=== PATIENT | female | born 1965 | race Caucasian/White ===

== ENCOUNTER 2019-05-28 11:24 | Emergency (ER) | payer SELFPAY ==
--- NOTE | 2019-05-28 12:06 | Emergency Department Record ---
History of Present Illness - General Chief Complaint: Rapid heartbeat Stated Complaint: Rapid Heart Rate Time Seen by Provider: 05/28/19 11:38 Source: Patient Mode of Arrival: Ambulatory Limitations: No limitations - History of Present Illness Initial Comments: The patient is here due to a rapid heart beat for 2-3 hours this morning. The patient has been having the issues off and on for months and today it seemed to last longer than normal. She denies any CP, SOB, JEREMY, LUCAS or sweating with it and denies any new medicines. The patient has seen a Desk Maker for this in the past in [place]. Complaint: Rapid heart beat Onset/Timin -: Hour(s) - Related Data Home Medications Medication Instructions Recorded Confirmed Last Taken Aspirin Chewable 81 mg PO DAILY 05/28/19 05/28/19 05/27/19 Lisinopril 10 mg PO QHS 05/28/19 05/28/19 05/27/19 Paroxetine HCl 20 mg PO QHS 05/28/19 05/28/19 05/27/19 Quetiapine Fumarate [Seroquel] 100 mg PO QHS 05/28/19 05/28/19 05/27/19 Valacyclovir HCl [Valtrex] 500 mg PO QHS 05/28/19 05/28/19 05/27/19 Allergies Allergy/AdvReac Type Severity Reaction Status Date / Time amoxicillin Allergy HIVES Verified 05/28/19 11:31 cefaclor [From Ceclor] Allergy HIVES Verified 05/28/19 11:31 cephalexin monohydrate Allergy HIVES Verified 05/28/19 11:31 [From Keflex] diphenhydramine HCl Allergy NAUSEA Verified 05/28/19 11:31 [From Benadryl] doxycycline Allergy HIVES Verified 05/28/19 11:31 erythromycin base Allergy HIVES Verified 05/28/19 11:31 levofloxacin [From Levaquin] Allergy HIVES Verified 05/28/19 11:31 Penicillins Allergy HIVES Verified 05/28/19 11:31 pseudoephedrine HCl Allergy NAUSEA Verified 05/28/19 11:31 [From Sudafed] sulfamethoxazole Allergy HIVES Verified 05/28/19 11:31 [From Bactrim] trimethoprim [From Bactrim] Allergy HIVES Verified 05/28/19 11:31 Travel/Exposure Screening - Travel/Exposure Within Last 30 Days Have you traveled within the last 30 days?: No - Additonal Travel/Exposure Details Have you been exposed to anyone with a communicable illness?: No Review of Systems Constitutional: Denies: Chills, Fever Eyes: Denies: Eye discharge ENT: Denies: Congestion Respiratory: Denies: Cough Cardiovascular: Reports: Arrhythmia. Denies: Chest pain Endocrine: Denies: Fatigue Gastrointestinal: Denies: Nausea Genitourinary: Denies: Dysuria Musculoskeletal: Denies: Arthralgia Past Medical History - SOCIAL HISTORY Smoking Status: Never smoker Alcohol Use: Rare Drug Use: Occasional Drug Use Detail:: Marijuana - RESPIRATORY Hx Respiratory Disorders: No - CARDIOVASCULAR Hx Cardio Disorders: Yes Hx Abnormal EKG: Yes (PVC) - NEURO Hx Neuro Disorders: Yes Hx Headaches: Yes (migraines) - GI Hx GI Disorders: Yes Hx Abdominal Pain: Yes Hx Liver Disease: Yes (hx hep C) - Hx Genitourinary Disorders: Yes Hx Kidney Stones: Yes - ENDOCRINE Hx Endocrine Disorders: No - MUSCULOSKELETAL Hx Musculoskeletal Disorders: No - PSYCH Hx Psych Problems: Yes Hx Anxiety: Yes (OCD) - HEMATOLOGY/ONCOLOGY Hx Hematology/Oncology Disorders: Yes Hx Anemia: Yes Family Medical History Any Significant Family History?: Yes Family Hx Comment (NOT TO BE USED IN PLACE OF ITEMS BELOW): mother-parkinsons and alzheimer's Hx Cancer: Father Hx Heart Disease: Brother/Sister Physical Exam - General General Appearance: Alert, Oriented x3, Cooperative, No acute distress - Head Head exam: Atraumatic, Normocephalic, Normal inspection - Eye Eye exam: Normal appearance, PERRL - ENT Throat exam: Normal inspection. negative: Tonsillar erythema, Tonsillar exudate - Neck Neck exam: Normal inspection, Full ROM. negative: Tenderness - Respiratory Respiratory exam: Normal lung sounds bilaterally. negative: Respiratory distress - Cardiovascular Cardiovascular Exam: Regular rate, Normal rhythm, Normal heart sounds. negative: Diastolic murmur, Systolic murmur - GI/Abdominal GI/Abdominal exam: Soft, Normal bowel sounds. negative: Tenderness - Extremities Extremities exam: Normal inspection, Full ROM, Normal capillary refill. negative: Tenderness - Neurological Neurological exam: Alert, Normal gait. negative: Abnormal gait, Motor sensory deficit Course Vital Signs 05/28/19 05/28/19 11:28 11:56 Temperature 97.3 F L Pulse Rate 134 H Pulse Rate [ 87 Packager Hand ] Respiratory 20 Rate Blood Pressure 128/89 Pulse Ox 93 L - Reevaluation(s) Reevaluation #1: 2nd EKG at 11:40. Normal with a HR of 84. 05/28/19 12:08 Reevaluation #2: The patient is doing very well at this time. 05/28/19 13:13 Reevaluation #3: The patient is doing very well and is asymptomatic. I did discuss the fact she was in SVT but did convert spontaneously. I also did discuss the probable mild hyperthyroid issue and the need for F/U. 05/28/19 15:33 Medical Decision Making - Data Complexity MDM Data: Labs Ordered and/or Reviewed, EKG Ordered and/or Reviewed - Lab Data Result diagrams: 05/28/19 11:55 05/28/19 11:55 - EKG Data -: EKG Interpreted by Me EKG: Abnormal EKG (Junctional Tach vs Aflutter at 132.) Disposition Disposition: Discharge Clinical Impression: SVT (supraventricular tachycardia) Disposition: Home, Self-Care Condition: (2) Stable Instructions: Heart Palpitations (ED) Additional Instructions: Please continue your regular medicines and please see your doctor for recheck and to have your thyroid evaluated further due to the presumed hyperthyroid issue. Return to the ER for any worsening issues or problems. Forms: Patient Portal Access Time of Disposition: 15:31 Quality - Quality Measures Quality Measures: N/A - Blood Pressure Screening View Details: Yes Does Patient Have Any of the Following: No Blood Pressure Classification: Pre-Hypertensive BP Reading Systolic Measurement: 128 Diastolic Measurement: 89 Screening for High Blood Pressure: < Pre-Hypertensive BP, F/U Documented > [[id number]] Pre-Hypertensive Follow-up Interventions: Referral to alternative/primary care provider.
[2019-05-28 12:15] LABS: ABSOLUTE NEUTROPHIL COUNT 5.73; BASO % 0.6 % (0-6); EOS % 3.4 % (0-6); GRAN % 61.2 % (47-80); HEMOGLOBIN 13.4 gm/dl (11.6-16.0); LYMPH % 28.2 % (16-45); MEAN CELL VOLUME 95.7 fl (81-97); MEAN CORPUSCULAR HEMOGLOBIN 30.5 pg (27-33); MEAN CORPUSCULAR HGB CONC 31.9 g/dl (32-36); MEAN PLATELET VOLUME 9.8 fl (7.4-10.4); MONO % 6.6 % (0-9); PLATELET COUNT 467 K/uL (130-400); RED BLOOD COUNT 4.39 M/uL (3.80-5.40); RED CELL DISTRIBUTION WIDTH 13.5 % (11.5-14.5); WHITE BLOOD COUNT W/O DIFF 9.4 K/uL (4.2-12.2)
[2019-05-28 12:24] LABS: BLOOD UREA NITROGEN 8 mg/dL (6-20); CREATININE 0.6 mg/dL (0.5-0.9); EST GLOMERULAR FILTRATION RATE > 60 mL/min
[2019-05-28 12:25] LABS: TOTAL PROTEIN 7.5 g/dL (6.6-8.7)
[2019-05-28 12:27] LABS: GLUCOSE,RANDOM 109 mg/dL (74-109)
[2019-05-28 12:29] LABS: ALT/SGPT 13 U/L (<33)
[2019-05-28 12:30] LABS: ALB/GLOB RATIO 1.2 (1.1-1.8); ALBUMIN 4.1 g/dL (4.0-5.0); ALKALINE PHOSPHATASE 85 U/L (35-104); AST/SGOT 17 U/L (10.0-35.0)
[2019-05-28 12:40] LABS: THYROID STIMULATING HORMONE 0.23 uIU/mL (0.270-4.20)
== END 2019-05-28 15:49 | disposition home or self-care (01) ==
LOC: ER 11:24
DX: I47.1 Supraventricular tachycardia (principal); R06.02 Shortness of breath
CPT/HCPCS: 80053; 84443; 84484; 85025; 93005; 93010; 99284